=== PATIENT | female | born 1990 ===

== ENCOUNTER 2025-05-30 13:25 | Outpatient (AMB) | payer OTHER, SELFPAY ==
--- OUTSIDE RECORDS SUMMARY | 2006-07-21 19:00 | XMS_ITS | Continuity of Care Document ---
Author Organization [facility] vices Address [address] [place] [address] Phone Care Team Providers Care Hand Laminator Name Role Phone Unavailable Unavailable Unavailable Procedures Procedure Date PREV NEW 06-20 Advance Directives Directive Yes / No Effective Date File Name No Information Encounters Encounter Description Practice Location Reason(s) For Visit Diagnoses Date Provider Providers Copied on Encounter [facility], [address] [place] [address], [facility], tel:[phone] Conversion LEGAL CIRCUMSTANCES No Information PREV NEW 06-20 [facility], [address] [place] [address], [facility], tel:[phone] [facility] No Information No Information Family History Family Member Type Diagnosis Age At Onset No Information Payers Payer name Insurance type Covered constitution party ID Authoriza tion(s) No Information Social History Type Description Quantity Date Captured Comments Sex Female Smoking Status No Information Chief Complaint And Reason For Visit No Information Reason For Referral Reason For Referral No Information History Of Present Illness Encounter Date Complaint History Of Prese nt Illness No Information Functional Status Date Functional Assessmen t No Information Instructions Date Instruction Additional Infor mation No Information Assessments Type Assessment Date No Information Patient Care Teams Name Effective Dates (start - stop) Status Members No Information
[2025-05-30 13:31] VITALS: BP 112/72; PULSE 82; O2SAT 97; BMI 42.4
--- NOTE | 2025-05-30 13:31 | HO.NEPHOV_ITS ---
Vital Signs 05/30/25 13:31 Height 5 ft 6 in Weight 263 lb BMI 42.4 BP 112/72 Blood Pressure Location Lt brachial Position Sitting Pulse 82 Pulse Source Pulse Oximeter Pulse Oximetry (%) 97 Oxygen Delivery Method Room Air Intake Visit Reasons: ENP-DX HTN Salesperson Stereo Equipment Required: No Accompanied by: Self / Same As Patient Allergies amoxicillin Allergy (Unknown, Verified 05/30/25 13:33) Unknown HPI Comments Details: The patient is a 34 year old individual presenting for evaluation of proteinuria following a referral from Dr. Castle. Although kidney function tests were reportedly normal, urinalyses have consistently shown protein and at times, red cells, white cells, and ketones. The patient has a history of bladder issues, including symptoms of overactive bladder, urinary frequency, and urinary incontinence with leakage, which predate . A urologist previously identified what was described as a narrow urethral opening and suggested dilation. The patient reports a weak pelvic floor and has faced difficulties accessing pelvic floor physical therapy. 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 The patient reports a recent respiratory infection that lasted over three weeks, exacerbating the asthma and causing right-sided chest pain and a persistent nocturnal cough. The patient also notes intermittent numbness in the right leg, for which a prior emergency room visit ruled out a blood clot. There is no diagnosis of hypertension, but the patient notes past readings have been slightly elevated, and there is a family history of hypertension in the patient's father. The patient recently stopped a 57-[id number] child and has since noted a three-pound weight loss. [facility] Medical History (Updated 05/30/25 @ 13:45 by Ritesh Benavidez MD) Obesity Essential hypertension Mixed hyperlipidemia Pre-diabetes Hemorrhoids Fatigue Adult-onset obesity Neuropathy Vitamin D deficiency, unspecified Hyperlipidemia, unspecified Anemia GERD (gastroesophageal reflux disease) COVID-19 Family History Mother Depression Schizophrenia Father Heart disease Hypertension Hyperthyroidism Heart attack Review of Systems Const Denies fever(s) and Denies weight loss Card Denies chest pain Resp Denies cough and Denies hemoptysis GI Denies abdominal pain, Denies diarrhea and Denies nausea Musc Denies back pain Neuro Denies focal weakness Physical Exam Vital Signs: Last Vital Signs Pulse 82 05/30/25 13:31 BP 112/72 05/30/25 13:31 Pulse Ox 97 05/30/25 13:31 Oxygen Delivery Method Room Air 05/30/25 13:31 BMI result Body Mass Index 42.4 Assessment & Plan Assessment & Plan (1) Abnormal urinalysis: Code(s): R82.90 - Unspecified abnormal findings in urine Category: Medical Plan - The patient's kidney function is noted to be fine, but the primary concern is the abnormal urinalysis findings. - A repeat urinalysis will be performed today to further assess for protein. - A kidney ultrasound will be scheduled to further evaluate the kidneys and urinary system. - Efforts will be made to expedite the ultrasound appointment to occur before the end of the year due to a change in the patient's insurance. BP is normal Needs weight loss and low salt diet Renal function is normal with a serum creatinine of 0.6 mg/dL Orders: Orders UA and rflx microscopic Today R82.90 - Unspecified abnormal findings in urine US renal BI Today R80.9 - Proteinuria, unspecified, R82.90 - Unspecified abnormal findings in urine Creatinine Urine Today R82.90 - Unspecified abnormal findings in urine Total Protein Urine Random Today R82.90 - Unspecified abnormal findings in urine Coding Level of Care Code New Pt Level 4 (04654) Diagnoses Abnormal urinalysis R82.90
--- OUTSIDE RECORDS SUMMARY | 2025-05-30 16:33 | XMS_ITS | Encounter Summary ---
Author Organization [facility] Address [address] [place] [address] Phone Care Team Providers Care Postal Clerk Name Role Phone Adri Perez MD Primary Care Provider [phone] Encounter Details Date Type Department Care Team (Late st Contact Info) Description 03/19/2023 Procedure Pass BWF Periop 1st floor [address] [place] [address] Social History Tobacco Use Types Packs/Day Years Used Date Smoking Tobacco: Never Smokeless Tobacco: Never Alcohol Use Standard Drinks/Week Comments Yes 0 (1 standard drink = 0.6 oz pur e alcohol) social Education Answer Date Recorded Are you interested in more education? Not on jody e 10/30/2022 Are you concerned about learning? Not on file 10/30/2022 No 10/30/2022 No 10/30/2022 Digital Access Answer Date Recorded No 12/01/2022 No 12/01/2022 Reliable internet access at home? Not on file 12/01/2022 Device with a working camera? Not on file Comments No Sex and Gender Information Value Date Recorded Sex Assigned at Female 02/02/2023 10:42 AM EDT Legal Sex Female 1:22 PM EST Gender Identity Female 02/02/2023 10:42 AM EDT Sexual Orientation Straight 02/02/2023 10 :42 AM EDT documented as of this encounter Plan of Treatment Not on file documented as of this encounter Visit Diagnoses Not on filedocumented in this encounter Care Teams Postal Clerk Relationship Specialty Start Date End Date Adri Perez MD [address] [place] [id number] [email or web address] PCP - General Internal Medicine 08/06/18 documented as of this encounter Additional Source Comments The information contained in this document represents components of the legal health record. It is not the complete legal health record.[facility]
--- OUTSIDE RECORDS SUMMARY | 2025-05-30 16:33 | XMS_ITS | Clinical Summary ---
Author Organization [facility] Address [address] [place] [address] Phone Care Team Providers Care Radio Board Operator Name Role Phone Adri Perez MD Primary Care Provider [phone] Allergies No known active allergies Medications ibuprofen (ADVIL,MOTRIN) 600 MG tablet Take 1 tablet (600 mg total) by mouth every 8 (eight) hours as needed for pain (specific location in comments) or fever. 15 tablet 08/06/2018 Active Active Problems No known active problems Social History Tobacco Use Types Packs/Day Years Used Date Smoking Tobacco: Never Smokeless Tobacco: Never Tobacco Cessation:Counseling Given: Not Answered Alcohol Use Standard Drinks/Week Comments Yes 0 [...] Orientation Straight 02/02/2023 10 :42 AM EDT Last Filed Vital Signs Vital Sign Reading Time Taken Comments Blood Pressure 125/79 02/16/2023 1:38 PM EDT Pulse 70 02/16/2023 1:38 PM EDT Temperature 36.1 C (97 F) 09/10/2020 8:12 PM EST Respiratory Rate 20 06/18/2021 1:17 PM EST Oxygen Saturation 100% 06/18/2021 1:17 PM EST Inhaled Oxygen Concentration - - Weight 104.3 kg (230 lb) 02/16/2023 1:38 PM EDT Height 167.6 cm (5' 6 ) 02/16/2023 1:38 PM EDT Body Mass Index 37.12 02/16/2023 1:38 PM EDT Plan of Treatment Health Maintenance Due Date Last Done Comments DEPRESSION SCREENING 2003 HEPATITIS C SCREENING 11/24/2009 HIV ONE-TIME SCREENING (18-6 5 YEARS) 11/24/2009 PAP SMEAR 11/24/2012 Adult Td,Tdap Booster 04/08/2020 04/08/2010 INFLUENZA VACCINE (#1) 2025 COVID-19 VACCINE (2 - 2024-2 6 season) 2025 10/16/2020 SMOKING STATUS SCREENING (On ce After 26 Yrs) Completed 02/16/2023 HEPATITIS A VACCINES Aged Out No long er eligible based on patient's age to complete this topic HIB VACCINES Aged Out No longer eligi ble based on patient's age to complete this topic MENINGOCOCCAL VACCINES (ACWY) Aged Out No longer eligible based on patient's age to complete this topic MENINGOCOCCAL VACCINES (B) Aged Out N o longer eligible based on patient's age to complete this topic PNEUMOCOCCAL VACCINES (0-49 years) Aged Out No longer eligible based on patient's age to complete this topic Medical Devices Not on [place] [address] [place] [address] PPO [employer] P[employer]PO [employer] PPO [facility] PPO [facility] PPO Care Teams Radio Board Operator Relationship Specialty Start Date End Date Adri Perez MD [address] [place] [id number] [email or web address] PCP - General Internal Medicine 08/06/18 Additional Source Comments The information contained in this document represents components of the legal health record. It is not the complete legal health record.[facility]
--- OUTSIDE RECORDS SUMMARY | 2025-05-30 16:33 | XMS_ITS | Clinical Summary ---
Author Organization [facility] Address [address] [place] [address] Care Team Providers Care Putty Patcher Name Role Phone Dakota Mtz MD Unavailable [phone] Frakn Busby MD Unavailable [phone] Anjum Castle MD Primary Care Provider Allergies Active Allergy Reactions Criticality Noted Date Comments Molds & Smuts Anaphylaxis,Cough,Swelling,Itching High 05/21/2025 Penicillins Anaphylaxis High 05/12/2024 Medications Vitamin D3 (CHOLECALCIFEROL ) 50 MCG (1999 UT) tablet Take 1 tablet (2,000 Units total) by mouth daily. Active predniSONE (DELTASONE) 20 MG tabletIndication s:Moderate persistent asthmatic bronchitis without complication Take 1 tablet (20 mg total) by mouth daily. Take 60 mg by mouth 1 time daily followed by 40 mg by mouth 1 time daily for 5 days with food. 13 tablet 05/18/20 25 Active proMETHAZINE-dex tromethorphan (proMETHAZINE-DM ) 6.25-15 MG/5ML syrupIndications :Moderate persistent asthmatic bronchitis without complication Take 5 mL by mouth every 4 (four) hours as needed for cough. 120 mL 05/18/20 25 Active terconazole (TERAZOL 7) 0.4 % vaginal creamIndications :Vulvar itching Apply externally bid to affected area for up to 2 weeks. 45 g 2 05/21/20 25 Active vitamin with iron and folic acid ( PLUS) 27-1 MG Tab Take 1 tablet by mouth daily. 025 Discontinued ascorbic acid (VITAMIN C) 500 MG tablet Take 1 tablet (500 mg total) by mouth daily. 025 Discontinued nystatin (MYCOSTATIN) ointmentIndicati ons:Yeast infection Apply topically 2 (two) times a day. 30 g 08/15/19 25 025 Discontinued Active Problems Problem Noted Date Diagnosed Date Heart palpitations 07/14/2023 Family history of ASCVD 07/14/2023 Encounters Date Type Department Care Team Description 05/21/2025 3:00 PM EST Office Visit [facility] Key Punch Operator [address] [place] [address] Delmy Tiwari MD Vulvar itching (Primary Dx); Urinary symptom or sign; Encounter for routine gynecological examination with Papanicolaou smear of cervix 05/18/2025 9:15 AM EST Office Visit [facility] [address] [address] Aram Tobias MD Razon, Matthew A, PA-C Moderate persistent asthmatic bronchitis without complication (Primary Dx) 05/18/2025 Scanned Document [address] [place] [phone] Provider, Generic 03/21/2025 1:35 PM EDT Ancillary Procedure [facility] Department Of Key Punch Operator [address] [address] Delmy Tiwari MD 03/12/2025 10:15 AM EDT Office Visit [facility] [address] [place] [address] Dakota Mtz MD Heart palpitations (Primary Dx); Family history of ASCVD; Other chest pain from Last 3 Months Immunizations Immunization Administration Dates Next Due DTaP 5 01/18/1996, 3,06/04/1992,03/26/1992,0 01/30/1992 HPV Quadrivalent 09/28/2008,02/15/2008, 7 Hep B Immune Globulin 1991 Hepatitis A 09/28/2008,02/15/2008 Hepatitis B 06/04/1992,1991,1991 Hib (PRP-OMP) 06/17/1993, 3,06/04/1992,03/26/1992,0 01/30/1992,1991 IPV 01/18/1996,03/26/1992,01/30/1992 MMR 01/01/1999,04/01/1993 Meningococcal MCV4P (Menactra) 10/28/2010,2006 OPV 06/17/1993 PPD Test 11/17/2006,01/24/2003 TD Preservative Free 02/27/2004 Tdap 04/08/2010 Varicella 07/27/1995 Family History Medical History Relation Name Comments Hypertension Father Stroke Father Parkinson's disease Mother Schizophrenia Mother Thyroid disease Mother Relation Name Status Comments Father Mother Social History Tobacco Use Types Packs/Day Years Used Date Smoking Tobacco: Never Smokeless Tobacco: Never Alcohol Use Standard Drinks/Week Comments Not Currently 0 (1 standard drink = 0.6 oz pur e alcohol) Comments No Sex and Gender Information Value Date Recorded Sex Assigned at Female 04/10/2023 10:09 PM EDT Legal Sex Female 11:19 AM EDT Gender Identity Female 04/10/2023 10:09 PM EDT Sexual Orientation Heterosexual (straight) 04/10 10:09 PM EDT Last Filed Vital Signs Vital Sign Reading Time Taken Comments Blood Pressure 113/69 05/21/2025 3:00 PM EST Pulse 85 05/18/2025 9:22 AM EST Temperature 36.8 C (98.2 F) 05/18/2025 9:22 AM EST Respiratory Rate 18 06/24/2023 6:05 AM EST Oxygen Saturation 96% 05/18/2025 9:22 AM EST Inhaled Oxygen Concentration - - Weight 121 kg (266 lb) 05/21/2025 3:00 PM EST Height 167.6 cm (5' 6 ) 05/21/2025 3:00 PM EST Body Mass Index 42.93 05/21/2025 3:00 PM EST Plan of Treatment Health Maintenance Due Date Last Done Comments DTaP/Tdap/Td Vaccines (7 - Td or Tdap) 04/08/2020 04/08/2010, 02/27/2004, 01/18/1996, Additional history exists Influenza Vaccine 02/02/2025 04/20/2012 COVID-19 Vaccine ( season) 2025 02/11/2022 Pap Smear (Ages 21-65) 05/12/2027 05/12/2024, 2022 Hepatitis B Vaccines Completed 06/04/1992, 1991, 1991 HPV Vaccines Completed 09/28/2008, 02/02, 11/17/2006 Hepatitis C Virus Screening Completed 04/28/2023, 0 01/27/2013 HIV Screening Completed 10/19/2023, 04/05, 01/27/2013 Pneumococcal Vaccine: Pediatric (0-5 Years) and At-Risk Patients (6 to 49 Years) Aged Out No longer eligible based on patient's age to complete this topic Procedures Procedure Name Priority Date/Time Associated Diagnosis Comments POCT URINALYSIS DIPSTICK, NON-AUTOMATED Routine 05/21/2025 3:59 PM EST Urinary symptom or sign BACTERIAL VAGINOSIS, AMBER Routine 05/21/2025 3:45 PM EST Vulvar itching CV/TV, AMBER Routine 05/21/2025 3:45 PM EST Vulvar itching ECHOCARDIOGRAM (TTE) COMPREHENSIVE (CONTRAST PRN) Routine 05/09/2025 1:19 PM EST Other chest pain US PELVIS-TRANSVAGINAL Routine 1:27 PM EDT Pelvic pain ECG 12-LEAD Routine 03/12/2025 10:18 AM EDT Heart palpitations THINPREP PAP(MERCHANDISE DISTRIBUTOR) HPV SCR RFX HPV 16,18/45 Routine 05/12/2024 4:08 PM EST Encounter for gynecological examination without abnormal finding HIV 1/2 AG/AB CMIA REFLEX TO CONFIRMATION Routine 10/19/2023 8:07 AM EDT HEPATITIS C VIRUS (HCV) ANTIBODY Routine 04/28/2023 3:06 PM EDT from Last 3 Months or Most Recently Relevant to Health Maintenance Results * (ABNORMAL) POCT Urinalysis Dipstick, Non-Automated (05/21/2025 3:59 PM EST) Source, UA Voided Color, UA Yellow Yellow & Clear, Yellow Clarity, UA Clear Clear Glucose, UA Negative Negative Bilirubin, UA Negative Negative Ketones, UA Negative Negative Spec Grav, UA 1.005 1.005, 1.010, 1.015, 1.020, 1.025 Blood, UA Negative Negative pH, UA 5.0 5.0, 5.5, 6.0, 6.5, 7.0, 7.5, 8.0 Protein, UA Trace(A) Negative Urobilinogen, UA 0.2 0.2, 1.0 Nitrite, UA Negative Negative Leukocyte Esterase, UA Negative Negative Lot Number na Tile Designer Pass Pass Urine 05/21/2025 3:59 PM EST Delmy Tiwari MD POINT OF CARE TEST ORDERABLES Final Result * CV/TV, AMBER (05/21/2025 3:45 PM EST) Pathologist [facility] Trichomonas Vaginalis TMA NEGATIVE NEGATIVE [facility] Phyllis Species NEGATIVE NEGATIVE [facility] Phyllis Glabrata NEGATIVE NEGATIVE [facility] Artery specimen / Unknown 05/21/2025 3:45 PM EST 05/21/2025 7:25 PM EST Delmy Tiwari MD LAB AMB MICRO ORDERABLES Final Result [facility] [address] [place] [address], * Bacterial Vaginosis, AMBER (05/21/2025 3:45 PM EST) Bacterial Vaginosis, PCR NEGATIVE Negative [facility] 05/21/2025 3:45 PM EST 05/21/2025 7:25 PM EST us Delmy Tiwari MD LAB AMB MICRO ORDERABLES Final Result [facility] [address] [place] [address], * ECHOCARDIOGRAM COMPREHENSIVE (05/09/2025 1:19 PM EST) Anatomical Region Laterality Modality Heart Ultrasound 05/10/2025 12:4 1 PM EST Narrative 05/10/2025 12:41 PM EST To view the final report click the scan hyperlink below. Scanned documents are not accessible through [employer]. Please contact Medical Records for a copy of your scanned result. Procedure Note Ethan Kelley MD - 05/10/2025 To view the final report click the scan hyperlink below. Scanned documents are not accessible through [employer]Hub. [facility] for a copy of your scanned result. us Dakota Mtz MD CV ECHO ORDERABLES Final Resu lt * US Pelvis-Transvaginal (03/21/2025 1:27 PM EDT) Anatomical Region Laterality Modality Pelvis Ultrasound Narrative 03/22/2025 12:41 PM EDT The uterus appears normal size and is anteverted The endometrial lining measures 9 mm The right and left ovary appear normal size and echogenicity-multiple small follicles visualized No free fluid in the pelvis Delmy Tiwari MD IMG US ORDERABLES Final Result * ECG 12 lead (03/12/2025 10:18 AM EDT) Ventricular rate 76 BPM EKG [facility] Atrial rate 76 BPM EKG [facility] P-R interval 136 ms EKG [facility] QRS duration 84 ms EKG [facility] Q-T interval 392 ms EKG [facility] QTC calculation (Bazett) 441 ms EKG [facility] P axis 38 degrees EKG [facility] R axis 42 degrees EKG [facility] T axis 24 degrees EKG [facility] 03/12/2025 10:1 8 AM EDT Narrative EKG [facility] - 03/12/2025 10:28 AM EDT Normal sinus rhythm Normal ECG When compared with ECG of 14-Jul-2023 15:39, No significant change was found Confirmed by MD Mtz Daniel ([id number]) on 03/12/2025 10:28:44 AM Procedure Note Dakota Mtz MD - 03/12/2025 Normal sinus rhythm Normal ECG When compared with ECG of 14-Jul-2023 15:39, No significant change was found Confirmed by MD Mtz Daniel ([id number]) on 03/12/2025 10:28:44 AM us Dakota Mtz MD ECG ORDERABLES Final Result Performing Organization Address City/[facility]/ZIP Co de Phone Number EKG [facility] * ThinPrep Pap(Fur Feeder) HPV Scr Rfx HPV 16,18/45 (05/12/2024 4:08 PM EST) 05/12/2024 4:08 PM EST Narrative [facility] - 05/18/2024 3:42 PM EST To view the final report click the scan hyperlink below. us Delmy Tiwari MD LAB AMB PATH/CYTO ORDERABLES F inal Result Performing Organization Address [facility] Co de Phone Number [address] * HIV 1/2 Ag/Ab CMIA Reflex to Confirmation (10/19/2023 8:07 AM EDT) HIV Ag/Ab, 4th Gen NON-REACT DORIS NON-REACT DORIS [facility] Comment: HIV-1 antigen and HIV-1/HIV-2 antibodies were not detected. There is no laboratory evidence of HIV infection. PLEASE NOTE: This information has been disclosed to you from records whose confidentiality may be protected by state law. If your state requires such protection, then the state law prohibits you from making any further disclosure of the information without the specific written consent of the person to whom it pertains, or as otherwise permitted by law. A general authorization for the release of medical or other information is NOT sufficient for this purpose. For additional information please refer to http://education.HelloNature/faq/ZDF279 (This link is being provided for informational/ educational purposes only.) The performance of this assay has not been clinically validated in patients less than 2 years old. 10/19/2023 8:07 AM EDT 10/19/2023 8:08 AM EDT Narrative [facility] - 10/20/2023 10:42 AM EDT PATIENT REFUSED SOME TESTING; PATIENT ENCOURAGED TO RETURN. us Kasandra Bai MD LAB BLOOD ORDERABLES Final R esult 20:[facility] [address] [place] [address], [place] [address] * HEPATITIS C VIRUS (HCV) ANTIBODY (04/28/2023 3:06 PM EDT) Hepatitis C Antibody 0.10 Non-Reacti ve Non-Reacti ve S/CO [facility] 04/28/2023 3:06 PM EDT 04/29/2023 12:32 AM EDT Narrative [facility] - 04/29/2023 2:15 AM EDT AN UPDATE OR CORRECTION HAS BEEN MADE TO NAME FASTING:NO us Elidia Tsai APRN LAB BLOOD ORDERABLES Final Result [facility] [address] [place] [address] from Last 3 Months or Most Recently Relevant to Health Maintenance Insurance [facility] Care Teams Putty Patcher Relationship Specialty Start Date End Date Anjum Castle MD [address] [place] [address] PCP - General Internal Medicine 05/03/25 Dakota Mtz MD [address] [place] [address] Primary Director [employer] Cardiovascular Disease 08/26/23 Frank Busby MD [address] [place] [id number] Neurology 04/05/24
--- OUTSIDE RECORDS SUMMARY | 2025-05-30 16:33 | XMS_ITS | Encounter Summary ---
Author Organization [facility] Address [address] [place] [address] Care Team Providers Care Meeting Facilitator Name Role Phone Dakota Mtz MD Unavailable Frank Busby MD Unavailable [phone] Anjum Castle MD Primary Care Provider [phone] Encounter Details Date Type Department Care Team (Late st Contact Info) Description 05/18/2025 Scanned Document [address] [place] [phone] Provider, Generic Social History Tobacco Use Types Packs/Day Years [...] Orientation Heterosexual (straight) 04/10 10:09 PM EDT documented as of this encounter Plan of Treatment Not on file documented as of this encounter Visit Diagnoses Not on filedocumented in this encounter Care Teams Meeting Facilitator Relationship Specialty Start Date End Date Anjum Castle MD [address] [place] [phone] PCP - General Internal Medicine 05/03/25 Dakota Mtz MD [address] [place] [phone] Primary Color Grinder Cardiovascular Disease 08/26/23 Frank Busby MD [address] [place] [phone] Neurology 04/05/24 documented as of this encounter
--- OUTSIDE RECORDS SUMMARY | 2025-05-30 16:33 | XMS_ITS | Clinical Summary ---
Author Organization [employer] [facility] Address [address] [place] [address] Care Team Providers Care Retail Service Lead Merchandiser Name Role Phone Unavailable Primary Care Provider Unavailabl e Social History Tobacco Use Types Packs/Day Years Used Date Smoking Tobacco: Never Assessed Sex and Gender Information Value Date Recorded Sex Assigned at Not on file Gender Identity Not on file Sexual Orientation Not on file Plan of Treatment Health Maintenance Due Date Last Done Comments Hepatitis C Screening 1991 COVID-19 Vaccine (#1) 05/27/1992 Depression Screening 2003 Preventative Health Evaluation 11/24/2009 Cervical Cancer Screening (Pap Smear) 11/24/2012 DTap / Tdap / Td (2 - Td or Tdap) 04/08/2020 04/08/2010 Influenza Vaccine (#1) 2025 Hepatitis B Vaccines Completed 06/04/1992, 1991, 1991, Additional history exists Pneumococcal Vaccine Aged Out No long er eligible based on patient's age to complete this topic RSV Ped < 20 months Aged Out No longe r eligible based on patient's age to complete this topic
--- OUTSIDE RECORDS SUMMARY | 2025-05-30 16:33 | XMS_ITS | Encounter Summary ---
Author Organization [facility] Address [address] [place] [address] Phone Care Team Providers Care Interactive Media Marketing Director Name Role Phone Adri Perez MD Primary Care Provider [phone] Encounter Details Date Type Department Care Team (Late st Contact Info) Description 03/31/2019 Ophth Exam [facility] Emergency Department [address] [place] [address] Sandy Webster MD [email or web address] Social History Tobacco Use Types Packs/Day Years Used Date Smoking Tobacco: Never Smokeless Tobacco: Never Alcohol Use Standard Drinks/Week Comments Yes 0 (1 standard drink = 0.6 oz pur e alcohol) social Comments Unknown Sex and Gender Information Value Date Recorded Sex Assigned at Female 02/02/2023 10:42 AM EDT Legal Sex Female 1:22 PM EST Gender Identity Female 02/02/2023 10:42 AM EDT Sexual Orientation Straight 02/02/2023 10 :42 AM EDT documented as of this encounter Plan of Treatment Not on file documented as of this encounter Visit Diagnoses Not on filedocumented in this encounter Care Teams Interactive Media Marketing Director Relationship Specialty Start Date End Date Adri Perez MD [address] [place] [address] [place] [address] [email or web address] PCP - General Internal Medicine 08/06/18 documented as of this encounter Additional Source Comments The information contained in this document represents components of the legal health record. It is not the complete legal health record.[facility]
--- OUTSIDE RECORDS SUMMARY | 2025-05-30 16:33 | XMS_ITS | Encounter Summary ---
Author Organization [facility] Address [address] [place] [address] Care Team Providers Care Farm Demonstrator Name Role Phone Ana Paula Griffin APRN Primary Care Provider Unava ilable Ana Paula Griffin APRN Unavailable Unavailable Dakota Mtz MD Unavailable [phone] Frank Busby MD Unavailable Pcp, No Primary Care Provider UnavailAnjum [place] MD Primary Care Provider [phone] Encounter Details Date Type Department Care Team (Late st Contact Info) Description 01/25/2024 Scanned Document [facility] Department Of Licensed Electrician [place] [address] [place] [id number] Delmy Tiwari MD [address] [place] [id number] Social History Tobacco Use Types Packs/Day Years Used Date Smoking Tobacco: Never Smokeless Tobacco: Never Alcohol Use Standard Drinks/Week Comments Not Currently 0 (1 standard drink = 0.6 oz pur e alcohol) Comments Yes Sex and Gender Information Value Date Recorded Sex Assigned at Female 04/10/2023 10:09 PM EDT Legal Sex Female 11:19 AM EDT Gender Identity Female 04/10/2023 10:09 PM EDT Sexual Orientation Heterosexual (straight) 04/10 10:09 PM EDT documented as of this encounter Plan of Treatment Not on file documented as of this encounter Visit Diagnoses Not on filedocumented in this encounter Care Teams Farm Demonstrator Relationship Specialty Start Date End Date Ana Paula Griffin APRN [address] [place] [address] PCP - General 05/14/14 03/11/25 Pcp, No PCP - General General Medicine 04/12/25 05/02/25 Anjum [place] MD [address] [facility] [address] [place] [address] PCP - General Internal Medicine 05/03/25 Ana Paula Griffin, ARACELY [address] [place] [address] 05/14/14 03/11/25 Dakota Mtz MD [address] [place] [address] Primary Lead Trainer Cardiovascular Disease 08/26/23 Frank Busby MD [address] [place] [id number] Neurology 04/05/24 documented as of this encounter
--- OUTSIDE RECORDS SUMMARY | 2025-05-30 16:33 | XMS_ITS | Encounter Summary ---
Author Organization [facility] Address [address] [place] [address] Care Team Providers Care Cab Supervisor Name Role Phone Ana Paula Griffin APRN Primary Care Provider Unava ilable An aPaula Griffin APRN Unavailable Unavailable Dakota Mtz MD Unavailable [phone] Frank Busby MD Unavailable [phone] Pcp, No Primary Care Provider Unavailranjit e Anjum [place] MD Primary Care Provider Encounter Details Date Type Department Care Team (Late st Contact Info) Description 07/07/2023 Scanned Document [facility] OBSTETRICS SCAN Obstetrics And Gynecology, Scan Social History Tobacco Use Types Packs/Day Years Used Date Smoking Tobacco: Never Assessed Comments Yes Sex and Gender Information Value [...] on filedocumented in this encounter Care Teams Cab Supervisor Relationship Specialty Start Date End Date Ana Paula Griffin APRN [address] [place] [address] PCP - General 05/14/14 03/11/25 Pcp, No PCP - General General Medicine 04/12/25 05/02/25 Anjum [place] MD [address] [place] [address] PCP - General Internal Medicine 05/03/25 Ana Paula Griffin APRN [address] [place] [address] 05/14/14 03/11/25 Dakota Mtz MD [address] [place] [address] Primary Youth Program Director Cardiovascular Disease 08/26/23 Frank Busby MD [address] [place] [phone] Neurology 04/05/24 documented as of this encounter
--- OUTSIDE RECORDS SUMMARY | 2025-05-30 16:33 | XMS_ITS | Encounter Summary ---
Author Organization [facility] Address [address] [place] [phone] Phone Care Team Providers Care Business Services Analyst Name Role Phone Adri Perez MD Primary Care Provider [phone] Encounter Details Date Type Department Care Team (Late st Contact Info) Description 04/16/2023 Procedure Pass [facility] Periop 1st floor [address] [place] [address] Social History Tobacco Use Types Packs/Day Years [...] on filedocumented in this encounter Care Teams Business Services Analyst Relationship Specialty Start Date End Date Adri Perez MD [address] [place] [address] [email or web address] PCP - General Internal Medicine 08/06/18 documented as of this encounter Additional Source Comments The information contained in this document represents components of the legal health record. It is not the complete legal health record.[facility]
--- OUTSIDE RECORDS SUMMARY | 2025-05-30 16:33 | XMS_ITS ---
Author Name [facility] Organization Unknown Results Test Name/Text Value Interpretation Date Range Source Troponin I SerPl HS-mCnc <2.0 ng/L 12/12/2024 0 - 14 [facility] Anion Gap SerPl Calc-sCnc 6.0 12/12/2024 5 - 14 [facility] Chloride SerPl-sCnc 105.0 mmol/L 12/12/2024 98 - 1 07 [facility] Creat SerPl-mCnc 0.75 mg/dL 12/12/2024 0.5 - 1 C [facility] Calcium SerPl-mCnc 9.1 mg/dL 12/12/2024 8.4 - 10.2 [facility] BUN/Creat SerPl 16.0 12/12/2024 12 - 20 [facility] Glucose SerPl-mCnc 99.0 mg/dL 12/12/2024 70 - 199 [facility] CO2 SerPl-sCnc 25.0 mmol/L 12/12/2024 24 - 32 [facility] eGFRcr SerPlBld CKD-EPI 2020 108.0 mL/min/1.73m2 12/12/2024 - [facility] Sodium SerPl-sCnc 136.0 mmol/L 12/12/2024 135 - 14 5 [facility] BUN SerPl-mCnc 12.0 mg/dL 12/12/2024 7 - 17 [facility] Potassium SerPl-sCnc 4.1 mmol/L 12/12/2024 3.5 - 5 .1 [facility] Monocytes NFr Bld Auto 10.4 % 12/12/2024 2 - 12 [facility] RDW RBC Auto 15.8 % 12/12/2024 12.1 - 16.2 [facility] Hct VFr Bld Auto 35.5 % Below low normal 12/12/2024 37 - 47 [facility] Basophils NFr Bld Auto 0.4 % 12/12/2024 0 - 2 [facility] Hgb Bld-mCnc 11.7 g/dL Below low normal 12/12/2024 12.5 - 16 [facility] Lymphocytes # Bld Auto 2.42 K/mcL 12/12/2024 1 - 3.2 [facility] Neutrophils NFr Bld Auto 56.7 % 12/12/2024 44 - 74 [facility] MCHC RBC Auto-EntMCnc 33.0 g/dL 12/12/2024 32 - 36 [facility] PMV Bld Auto 10.5 FL 12/12/2024 7.4 - 11.4 [facility] Eosinophil # Bld Auto 0.15 K/mcL 12/12/2024 0 - 0. 5 [facility] WBC # Bld Auto 8.0 K/mcL 12/12/2024 4 - 10.5 [facility] Basophils # Bld Auto 0.03 K/mcL 12/12/2024 0 - 0.2 [facility] RBC Auto 79.8 FL 12/12/2024 78 - 100 [facility] Lymphocytes NFr Bld Auto 30.3 % 12/12/2024 20 - 48 [facility] Monocytes # Bld Auto 0.83 K/mcL Above high normal 12/12/2024 0 - 0.8 [facility] Neutrophils # Bld Auto 4.53 K/mcL 12/12/2024 1.8 - 7.8 [facility] Platelet # Bld Auto 255.0 K/mcL 12/12/2024 150 - 4 50 [facility] RBC # Bld Auto 4.45 M/mcL 12/12/2024 4.2 - 5.4 [facility] MCH RBC Qn Auto 26.3 pcg 12/12/2024 25 - 33 [facility] Eosinophil NFr Bld Auto 1.9 % 12/12/2024 0 - 6 [facility] D Dimer PPP DDU-mCnc <150.0 ng/mL DDU 12/12/2024 - 231 [facility] History of Medication Use Medication Directions Dispensed Refills Start Date End Date Status terconazole (TERAZOL 7) 0.4 % vaginal cream Apply externally bid to affected area for up to 2 weeks. 5 active predniSONE (DELTASONE) 20 MG tablet Take 1 tablet (20 mg total) by mouth daily. Take 60 mg by mouth 1 time daily followed by 40 mg by mouth 1 time daily for 5 days with food. 5 active proMETHAZINE-dextrometh orphan (proMETHAZINE-DM) 6.25-15 MG/5ML syrup Take 5 mL by mouth every 4 (four) hours as needed for cough. 5 active ketorolac (TORADOL) injection 30 mg 30 mg, intramuscular, Once, On Wed09/22/24 at 1144, For 1 dose 5 09/23/19 completed predniSONE (DELTASONE) tablet 60 mg 60 mg, oral, Once, On Wed09/22/24 at 1144, For 1 dose 5 09/23/19 completed cyclobenzaprine (FLEXERIL) tablet 10 mg 10 mg, oral, Once, On Wed09/22/24 at 1144, For 1 dose 5 active lidocaine (LIDODERM) 5 % patch Apply 1 patch topically 1 (one) time each day for 7 days. Remove & discard patch within 12 hours or as directed by MD. 5 active lidocaine 4 % patch 1 patch 1 patch, Topical, Administer over 12 Hours, Once, On Wed09/22/24 at 1144, For 1 dose, Apply to back. 5 active methocarbamoL (ROBAXIN) 500 mg tablet Take 1 tablet (500 mg total) by mouth 2 (two) times a day if needed for muscle spasms for up to 15 doses. 5 active predniSONE (DELTASONE) 20 mg tablet Take 3 tablets (60 mg total) by mouth 1 (one) time each day for 1 day, THEN 2 tablets (40 mg total) 1 (one) time each day for 2 days, THEN 1 tablet (20 mg total) 1 (one) time each day for 2 days. See instructions.. 5 active nystatin (MYCOSTATIN) ointment Apply topically 2 (two) times a day. 5 active valacyclovir 500 mg tablet Take 1 tablet twice a day by oral route. 4 active doxylamine 10 mg-pyridoxine (vit B6) 10 mg tablet,delayed release Take by oral route for 10 days. 3 06/15/20 23 completed PNV-DHA 27 mg iron-1 mg-300 mg capsule 06/15/20 23 completed azithromycin 250 mg tablet 07/08/19 17 completed biotin 07/08/19 17 completed dexmethylphenidate 10 mg tablet 07/08/19 17 completed fluticasone propionate 50 mcg/actuation nasal spray,suspension 07/08/19 17 completed nitrofurantoin monohydrate/macrocrysta ls 100 mg capsule Take 1 capsule every 12 hours by oral route for 5 days. 07/08/19 17 completed ProAir HFA 90 mcg/actuation aerosol inhaler 07/08/19 17 completed Wellbutrin SR 200 mg tablet, 12 hr sustained-release Take 1 tablet twice a day by oral route. 07/08/19 17 completed valacyclovir 500 mg tablet active ascorbic acid (VITAMIN C) 500 MG tablet Take 1 tablet (500 mg total) by mouth daily. active No known medications No known medications active vitamin with iron and folic acid ( PLUS) 27-1 MG Tab Take 1 tablet by mouth daily. active Vitamin D3 (CHOLECALCIFEROL) 50 MCG (2000 UT) tablet Take 1 tablet (2,000 Units total) by mouth daily. active Allergies Allergen Reaction Severity Comment Documented Date Source Statu s MOLDS & SMUTS ITCHING 05/21/2025 [facility] active PENICILLINS ANAPHYLAXIS 05/12/2024 [facility] activ e HOUSE DUST ALLERGENIC EXTRACT ITCHING severe [facility] MOLD EXTRACT ITCHING severe [facility] active Problems Problem Status Onset Date Problem Type Date of Resolution Source Urinary symptom or sign active EncounterDiagnosisAct [facility] Vulvar itching active EncounterDiagnosisAct [facility] Heart palpitations active 2023-07-14 ProblemAct [facility] Family history of ASCVD active 2023-07-14 ProblemAct [facility] Moderate persistent asthmatic bronchitis without complication active EncounterDiagnosisAct [facility] Heart palpitations active 2023-07-14 ProblemAct [facility] Family history of ASCVD active 2023-07-14 ProblemAct [facility] Mild anemia active EncounterDiagnosisAct [facility] Chronic chest pain active EncounterDiagnosisAct [facility] Chronic pain of right lower extremity active EncounterDiagnosisAct [facility] Edema, unspecified type active EncounterDiagnosisAct [facility] Immunizations Vaccine Date Source Lot Number Status Meningococcal MCV4P (Menactra) 10/28/2010 [facility] completed Meningococcal MCV4P (Menactra) 10/28/2010 [facility] completed Meningococcal MCV4P (Menactra) 10/28/2010 [facility] completed Meningococcal MCV4P (Menactra) 10/28/2010 [facility] completed Meningococcal MCV4P (Menactra) 10/28/2010 [facility] completed Tdap 04/08/2010 [facility] completed Tdap 04/08/2010 [facility] completed Tdap 04/08/2010 [facility] completed Tdap 04/08/2010 [facility] completed Tdap 04/08/2010 [facility] completed Hepatitis A 09/28/2008 [facility] completed Hepatitis A 09/28/2008 [facility] completed Hepatitis A 09/28/2008 [facility] completed Hepatitis A 09/28/2008 [facility] completed Hepatitis A 09/28/2008 [facility] completed HPV Quadrivalent 09/28/2008 [facility] complete d HPV Quadrivalent 09/28/2008 [facility] complete d HPV Quadrivalent 09/28/2008 [facility] complete d HPV Quadrivalent 09/28/2008 [facility] complete d HPV Quadrivalent 09/28/2008 [facility] complete d Hepatitis A 02/15/2008 [facility] completed Hepatitis A 02/15/2008 [facility] completed Hepatitis A 02/15/2008 [facility] completed Hepatitis A 02/15/2008 [facility] completed Hepatitis A 02/15/2008 [facility] completed HPV Quadrivalent 02/15/2008 [facility] complete d HPV Quadrivalent 02/15/2008 [facility] complete d HPV Quadrivalent 02/15/2008 [facility] complete d HPV Quadrivalent 02/15/2008 [facility] complete d HPV Quadrivalent 02/15/2008 [facility] complete d HPV Quadrivalent 11/17/2006 [facility] complete d HPV Quadrivalent 11/17/2006 [facility] complete d HPV Quadrivalent 11/17/2006 [facility] complete d HPV Quadrivalent 11/17/2006 [facility] complete d HPV Quadrivalent 11/17/2006 [facility] complete d Meningococcal MCV4P (Menactra) 11/17/2006 [facility] completed Meningococcal MCV4P (Menactra) 11/17/2006 [facility] completed Meningococcal MCV4P (Menactra) 11/17/2006 [facility] completed Meningococcal MCV4P (Menactra) 11/17/2006 [facility] completed Meningococcal MCV4P (Menactra) 11/17/2006 [facility] completed PPD Test 11/17/2006 [facility] completed PPD Test 11/17/2006 [facility] completed PPD Test 11/17/2006 [facility] completed PPD Test 11/17/2006 [facility] completed PPD Test 11/17/2006 [facility] completed TD Preservative Free 02/27/2004 [facility] comp leted TD Preservative Free 02/27/2004 [facility] comp leted TD Preservative Free 02/27/2004 [facility] comp leted TD Preservative Free 02/27/2004 [facility] comp leted TD Preservative Free 02/27/2004 [facility] comp leted PPD Test 01/24/2003 [facility] completed PPD Test 01/24/2003 [facility] completed PPD Test 01/24/2003 [facility] completed PPD Test 01/24/2003 [facility] completed PPD Test 01/24/2003 [facility] completed MMR 01/01/1999 [facility] completed MMR 01/01/1999 [facility] completed MMR 01/01/1999 [facility] completed MMR 01/01/1999 [facility] completed MMR 01/01/1999 [facility] completed DTaP 5 01/18/1996 [facility] completed DTaP 5 01/18/1996 [facility] completed DTaP 5 01/18/1996 [facility] completed DTaP 5 01/18/1996 [facility] completed DTaP 5 01/18/1996 [facility] completed IPV 01/18/1996 [facility] completed IPV 01/18/1996 [facility] completed IPV 01/18/1996 [facility] completed IPV 01/18/1996 [facility] completed IPV 01/18/1996 [facility] completed Varicella 07/27/1995 [facility] completed Varicella 07/27/1995 [facility] completed Varicella 07/27/1995 [facility] completed Varicella 07/27/1995 [facility] completed Varicella 07/27/1995 [facility] completed DTaP 5 06/17/1993 [facility] completed DTaP 5 06/17/1993 [facility] completed DTaP 5 06/17/1993 [facility] completed DTaP 5 06/17/1993 [facility] completed DTaP 5 06/17/1993 [facility] completed Hib (PRP-OMP) 06/17/1993 [facility] completed Hib (PRP-OMP) 06/17/1993 [facility] completed Hib (PRP-OMP) 06/17/1993 [facility] completed Hib (PRP-OMP) 06/17/1993 [facility] completed Hib (PRP-OMP) 06/17/1993 [facility] completed OPV 06/17/1993 [facility] completed OPV 06/17/1993 [facility] completed OPV 06/17/1993 [facility] completed OPV 06/17/1993 [facility] completed OPV 06/17/1993 [facility] completed Hib (PRP-OMP) 04/01/1993 [facility] completed Hib (PRP-OMP) 04/01/1993 [facility] completed Hib (PRP-OMP) 04/01/1993 [facility] completed Hib (PRP-OMP) 04/01/1993 [facility] completed Hib (PRP-OMP) 04/01/1993 [facility] completed MMR 04/01/1993 [facility] completed MMR 04/01/1993 [facility] completed MMR 04/01/1993 [facility] completed MMR 04/01/1993 [facility] completed MMR 04/01/1993 [facility] completed DTaP 5 06/04/1992 [facility] completed DTaP 5 06/04/1992 [facility] completed DTaP 5 06/04/1992 [facility] completed DTaP 5 06/04/1992 [facility] completed DTaP 5 06/04/1992 [facility] completed Hepatitis B 06/04/1992 [facility] completed Hepatitis B 06/04/1992 [facility] completed Hepatitis B 06/04/1992 [facility] completed Hepatitis B 06/04/1992 [facility] completed Hepatitis B 06/04/1992 [facility] completed Hib (PRP-OMP) 06/04/1992 [facility] completed Hib (PRP-OMP) 06/04/1992 [facility] completed Hib (PRP-OMP) 06/04/1992 [facility] completed Hib (PRP-OMP) 06/04/1992 [facility] completed Hib (PRP-OMP) 06/04/1992 [facility] completed DTaP 5 03/26/1992 [facility] completed DTaP 5 03/26/1992 [facility] completed DTaP 5 03/26/1992 [facility] completed DTaP 5 03/26/1992 [facility] completed DTaP 5 03/26/1992 [facility] completed Hib (PRP-OMP) 03/26/1992 [facility] completed Hib (PRP-OMP) 03/26/1992 [facility] completed Hib (PRP-OMP) 03/26/1992 [facility] completed Hib (PRP-OMP) 03/26/1992 [facility] completed Hib (PRP-OMP) 03/26/1992 [facility] completed IPV 03/26/1992 [facility] completed IPV 03/26/1992 [facility] completed IPV 03/26/1992 [facility] completed IPV 03/26/1992 [facility] completed IPV 03/26/1992 [facility] completed DTaP 5 01/30/1992 [facility] completed DTaP 5 01/30/1992 [facility] completed DTaP 5 01/30/1992 [facility] completed DTaP 5 01/30/1992 [facility] completed DTaP 5 01/30/1992 [facility] completed Hib (PRP-OMP) 01/30/1992 [facility] completed Hib (PRP-OMP) 01/30/1992 [facility] completed Hib (PRP-OMP) 01/30/1992 [facility] completed Hib (PRP-OMP) 01/30/1992 [facility] completed Hib (PRP-OMP) 01/30/1992 [facility] completed IPV 01/30/1992 [facility] completed IPV 01/30/1992 [facility] completed IPV 01/30/1992 [facility] completed IPV 01/30/1992 [facility] completed IPV 01/30/1992 [facility] completed Hepatitis B 1991 [facility] completed Hepatitis B 1991 [facility] completed Hepatitis B 1991 [facility] completed Hepatitis B 1991 [facility] completed Hepatitis B 1991 [facility] completed Hib (PRP-OMP) 1991 [facility] completed Hib (PRP-OMP) 1991 [facility] completed Hib (PRP-OMP) 1991 [facility] completed Hib (PRP-OMP) 1991 [facility] completed Hib (PRP-OMP) 1991 [facility] completed Hep B Immune Globulin 1991 [facility] com pleted Hep B Immune Globulin 1991 [facility] com pleted Hep B Immune Globulin 1991 [facility] com pleted Hep B Immune Globulin 1991 [facility] com pleted Hep B Immune Globulin 1991 [facility] com pleted Hepatitis B 1991 [facility] completed Hepatitis B 1991 [facility] completed Hepatitis B 1991 [facility] completed Hepatitis B 1991 [facility] completed Hepatitis B 1991 [facility] completed Encounters Encounter Type Encounter Reason Primary Diagnosis Location Date Ambulatory Pruritus vulvae Pruritus vulvae [place] [employer] 05/21/2025 Ambulatory Other Other [facility] [employer] [facility] 05/18/2025 Ambulatory [facility] 05/09/2025 Ambulatory [facility] 04/24/2025 Ambulatory [place] [employer] [facility] 03/21/2025 Ambulatory [place] [employer] [facility] 03/21/2025 Ambulatory Palpitations Palpitations [facility] 03/12/2025 Ambulatory Follow-up Follow-up [facility] 02/21/2025 Ambulatory Follow-up Follow-up [facility] 02/16/2025 Ambulatory Follow-up Follow-up [facility] 12/20/2024 Emergency chest pain right leg numbness and tingling Edema, unspecified [facility] 12/12/2024 Emergency BACKPAIN Sciatica, left side [facility] 09/22/2024 Ambulatory Gynecologic Exam Gynecologic Exam [facility] [employer] 05/12/2024 Ambulatory [place] 04/05/2024 Ambulatory BILAT BRST PAIN BILAT BRST PAIN [facility] 12/31/2023 Ambulatory Encntr for suprvsn of normal first preg, third trimester Encntr for suprvsn of normal first preg, third trimester [facility] 11/15/2023 Ambulatory Encntr for suprvsn of normal first preg, third trimester Encntr for suprvsn of normal first preg, third trimester [facility] 11/02/2023 Ambulatory Encntr for suprvsn of normal first preg, third trimester Encntr for suprvsn of normal first preg, third trimester [facility] 10/20/2023 Ambulatory Encntr for suprvsn of normal first preg, third trimester Encntr for suprvsn of normal first preg, third trimester [facility] 10/06/2023 Ambulatory Supervision of high risk , unsp, third trimester Supervision of high risk , unsp, third trimester [facility] 09/24/2023 Ambulatory Supervision of high risk , unsp, second trimester Supervision of high risk , unsp, second trimester [facility] 09/08/2023 Ambulatory [employer] 09/07/2023 Ambulatory Encntr for suprvsn of normal first preg, second trimester [facility] 08/11/2023 Ambulatory Palpitations Palpitations [facility] [employer] 07/14/2023 Ambulatory Encntr for suprvsn of normal first preg, second trimester [facility] 07/12/2023 Ambulatory Encntr for suprvsn of normal first preg, second trimester [facility] 07/12/2023 Ambulatory Pain in left leg Pain in left leg [facility]ul[facility] 06/24/2023 Ambulatory Encntr for suprvsn of normal first preg, second trimester [facility] 06/24/2023 Ambulatory Encntr for suprvsn of normal first preg, second trimester [facility] 06/24/2023 Emergency Hematuria, unspecified Hematuria, unspecified [facility] [employer] 06/24/2023 Ambulatory Encntr for suprvsn of normal first preg, second trimester [facility] 06/23/2023 Ambulatory Pain in left leg Pain in left leg He[facility] Shaulis 06/22/2023 Ambulatory Encntr for suprvsn of normal first preg, first trimester [facility] 06/17/2023 Ambulatory Vomiting of , unspecified [facility] 05/24/2023 Ambulatory Vomiting of , unspecified [facility] 05/24/2023 Ambulatory Encntr for airconditioning engineer exam (general) (routine) w/o abn findings [facility] 05/04/2023 Ambulatory Encntr for airconditioning engineer exam (general) (routine) w/o abn findings [facility] 04/23/2023 Ambulatory Encntr for airconditioning engineer exam (general) (routine) w/o abn findings [facility] 04/23/2023 Emergency Encounter for supervision of normal , unspecified, unspecified trimester Encounter for supervision of normal , unspecified, unspecified trimester [facility] [employer] 04/10/2023 Care Team Organization Name Specialty Phone Email Start Date End Da te [place] [facility] [facility] 05/10/2025 [place] [employer] [facility] 05/10/2025 [facility] 04/26/2025 [facility] Pamela Herrera Primary Care 04/26/2025 [place] [employer] NO PCP Primary Care 04/12/2025 [place] [employer] 04/12/2025 [place] [employer] [facility] Primary [facility] 12/20/2024 [facility] 09/26/2024 [facility] 09/22/2024 [facility] NO PHYSICIAN Primary Care 09/22/2024 [facility] ZABRINA TRAN, Primary Care 12/31/2023 4 [facility] ZABRINA TRAN Primary Care 12/31/2023 [facility] 4 [facility] 04/23/2023 05/23/2025 [facility] 04/23/2023 04/23/2023 [place] [employer] [facility] Primary [facility] 04/11/2023 [place] [employer] [facility] Primary [facility] 04/10/2023 3
== END 2025-05-30 13:55 | disposition home or self-care (01) ==
PROVIDERS: PCP Internal Medicine; Visit Provider Internal Medicine Hypertension Specialist
DX: R82.90 Unspecified abnormal findings in urine (principal)
CPT/HCPCS: 99204